=== PATIENT | female | born 1995 | race Caucasian/White ===

== ENCOUNTER → 2019-01-07 | Outpatient (CLI) | payer OTHER ==
--- NOTE | 2019-01-07 13:28 | RADIOLOGY REPORT (SQ) ---
EXAM DESCRIPTION: U/S OB 14+ TA/1 GEST W/DOPPLER COMPLETED DATE/TIME: 01/07/2019 1:00 pm REASON FOR STUDY: ANATOMY SCAN COMPARISON: None. TECHNIQUE: Static and Dynamic grayscale imaging performed of gravid uterus using transabdominal appr oach. Additional selected color Doppler and spectral images recorded. All stored on PACS. LIMITATIONS: None. FINDINGS: FETUSES SEEN:2 EGA: 18 weeks 0 days Calculated using BPD,FL,HC,AC documented on images. No discrepancy with clinica l dates. MAC: 06/10/2019 EFW: 205 +/-30 grams Twin A; 203 +/- 30 grams Twin B. PERCENTILE: Not applicable. Fetus less than or equal to 20 weeks gestation. LV P: 4.8 x 3 cm PLACENTA: Posterior grade 1 PRESENTATION: Cephalic. ANATOMY: TWIN A HEART RATE: 143 beats per minute. FOUR CHAMBER HEART: Visualized. THREE VESSEL CORD: Yes. CORD INSERTION: Visualized. KIDNEYS AND BLADDER: Visualized. Appear normal. STOMACH: Visualized. Appears normal. SPINE: Normal as visualized. BRAIN AND LATERAL VENTRICLES: Visualized. Appear normal. OTHER: No other significant finding. ANATOMY: TWIN B HEART RATE: 160 beats per minute. FOUR CHAMBER HEART: Visualized. THREE VESSEL CORD: Yes. CORD INSERTION: Visualized. KIDNEYS AND BLADDER: Visualized. Appear normal. STOMACH: Visualized. Appears normal. SPINE: Normal as visualized. BRAIN AND LATERAL VENTRICLES: Visualized. Appear normal. OTHER: No other significant finding. MATERNAL ADNEXA: Maternal ovaries not visualized. CERVICAL LENGTH: 4 cm. Closed. OTHER: No other significant finding. IMPRESSION: LIVING TWIN INTRAUTERINE . ESTIMATED GESTATIONAL AGE 18 weeks 0 days NO VISUALIZED ANOMALIES. Trimester of : Second trimester - 13 weeks 1 day to 27 weeks 6 days. TECHNICAL DOCUMENTATION: JOB ID: [id number] [employer]- All Rights Reserved Reading location - IP/workstation name: [email or web address]
--- NOTE | 2019-01-07 13:30 | RADIOLOGY REPORT (SQ) ---
EXAM DESCRIPTION: U/S [id number] + EACH ADDIT GEST COMPLETED DATE/TIME: 01/07/2019 1:00 pm REASON FOR STUDY: ANATOMY SCAN- TWINS COMPARISON: None. TECHNIQUE: Static and Dynamic grayscale imaging performed of gravid uterus using transabdominal appr oac. Additional selected color Doppler and spectral images recorded. All stored on PACS. LIMITATIONS: None. FINDINGS: See separate report of same date. IMPRESSION: LIVING TWIN INTRAUTERINE . ESTIMATED GESTATIONAL AGE 18 weeks 0 days NO VISUALIZED ANOMALIES. Trimester of : Second trimester - 13 weeks 1 day to 27 weeks 6 days. TECHNICAL DOCUMENTATION: JOB ID: [id number] [employer]- All Rights Reserved Reading location - IP/workstation name: [email or web address]
== END ==
LOC: RAD 11:45
PROVIDERS: ATTEND Obstetrics & Gynecology Obstetrics
DX: O30.042 Twin pregnancy, dichorionic/diamniotic, second trimester (principal); Z3A.18 18 weeks gestation of pregnancy
CPT/HCPCS: 76805; 76810; 93976

== ENCOUNTER 2019-12-30 18:01 | Emergency (ER) | payer OTHER ==
--- NOTE | 2019-12-30 18:10 | ER Document Report ---
ED Medical Screen (RME) - General Chief Complaint: Abdominal Pain Stated Complaint: ABDOMINAL PAIN Time Seen by Provider: 12/30/19 18:02 Primary Care Provider: SALONI CAMPOS MD [Primary Care Provider] - Follow up as needed Mode of Arrival: Wheelchair Information source: Patient Notes: 24-year-old female presented to ED for pelvic and abdominal pain with a possible ectopic . She went to a [facility] yesterday with a diagnosis of a possible ectopic and a possible intrauterine at 5 weeks 4 days. Blood urine and ultrasound have been ordered and she has been taken to ultrasound. She states she is not having any vaginal bleeding at this time. I have greeted and performed a rapid initial assessment of this patient. A comprehensive ED assessment and evaluation of the patient, analysis of test results and completion of medical decision making process will be conducted by an additional ED providers. TRAVEL OUTSIDE OF THE [place] IN LAST 30 DAYS: No Physical Exam - Vital signs Vitals: Temp Pulse Resp BP Pulse Ox 99.6 F 80 18 119/82 100 12/30/19 18:06 12/30/19 18:06 12/30/19 18:06 12/30/19 18:06 12/30/19 18:06 Course - Vital Signs Vital signs: Temp Pulse Resp BP Pulse Ox 99.6 F 80 18 119/82 100 12/30/19 18:06 12/30/19 18:06 12/30/19 18:06 12/30/19 18:06 12/30/19 18:06 Doctor's Discharge - Discharge Referrals: SALONI CAMPOS MD [Primary Care Provider] - Follow up as needed
--- NOTE | 2019-12-30 19:08 | RADIOLOGY REPORT (SQ) ---
EXAM DESCRIPTION: U/S OB TRANSVAG W/DOPPLER IMAGES COMPLETED DATE/TIME: 12/30/2019 6:46 pm REASON FOR STUDY: abdominal pain ectopic preg COMPARISON: None. TECHNIQUE: Transvaginal static and realtime grayscale images acquired of the pelvis. Additional azael cted spectral and color Doppler images recorded. All images stored on PACs. BHCG: Not available. CLINICAL DATES: LMP 11/05/2019. EGA 7 weeks 6 days. MAC 08/11/2020 LIMITATIONS: None. FINDINGS: UTERUS: There is a hypoechoic structure within the uterine canal most compatible with gest ational sac measuring 0.9 mm corresponding to estimated gestational age of 5 weeks and 5 days. . Ad ditional hypoechoic area within the uterine body measuring 1.4 x 1.3 x 1.1 cm, likely intramural fibr oid. RIGHT ADNEXA: Right ovary measures 6.6 x 5.5 x 4.8 cm. There is a cyst measuring up to 5.7 cm. Vasc ular flow identified on color Doppler. No adnexal free fluid. LEFT ADNEXA: Left ovary measures 3.2 x 1.9 x 1.6 cm. Vascular flow identified on color Doppler. No a dnexal free fluid. No adnexal masses. FREE FLUID: None. OTHER: Nabothian cyst measuring 6 mm. IMPRESSION: 1. Hypoechoic structure within the endometrial canal measuring 9 mm most compatible wit h a gestational sac and corresponding to estimated gestational age of 5 weeks and 5 days. No p ole identified at this time. Recommend short-term follow-up ultrasound to accurately assess pregnanc y status. 2. Large right ovarian cyst measuring 6.6 cm. Recommend 2 - 6 month follow-up to ensure stability/r esolution. 3. Small additional hypoechoic structure within the uterus measuring 1.4 cm, possibly small fibroid. TECHNICAL DOCUMENTATION: JOB ID: [id number] [employer]- All Rights Reserved Reading location - IP/workstation name: [email or web address]
--- NOTE | 2019-12-30 19:11 | ER Document Report ---
ED GI/ - General Chief Complaint: Abdominal Pain Stated Complaint: ABDOMINAL PAIN Time Seen by Provider: 12/30/19 18:02 Primary Care Provider: SALONI CAMPOS MD [NO LOCAL MD] - Follow up as needed JOEY MCLAUGHLIN MD [ACTIVE STAFF] - Follow up in 3-5 days Mode of Arrival: Wheelchair Notes: Patient is a G2, P1 24-year-old female who presents emergency department with a chief complaint of left pelvic pain. Patient states that her last menstrual cycle was November 04. Patient had an ultrasound done 3 days ago and they cannot rule out an ectopic at that time. [facility] went to [facility] for [facility]. They recommended a repeat ultrasound yesterday, which was transabdominal. Patient states that the could not see anything at that time. Patient has not received any care. Denies any unusual vaginal discharge. Denies any nausea or vomiting. States that the pain is only on the left side. TRAVEL OUTSIDE OF THE [place] IN LAST 30 DAYS: No Past Medical History - General Information source: Patient - Social History Smoking Status: Never Smoker Family History: Reviewed & Not Pertinent Review of Systems - Review of Systems Notes: REVIEW OF SYSTEMS: CONSTITUTIONAL : Denies recent illness. Denies recent unintentional weight loss. Denies fever, chills, or sweats. EENT: Denies eye, ear, throat, or mouth pain, discharge, or symptoms. Denies nasal or sinus congestion. CARDIOVASCULAR: Denies chest pain. RESPIRATORY: Denies shortness of breath, cough, congestion, difficulty breathing, or wheezing. GASTROINTESTINAL: Denies nausea, vomiting, and diarrhea. Denies constipation. See HPI. GENITOURINARY: Denies difficulty urinating, burning, blood in urine, urgency or frequency. FEMALE GENITOURINARY: See HPI. MUSCULOSKELETAL: Denies neck and back pain. Denies joint pain or swelling. SKIN: Denies rash, itchiness, or lesions HEMATOLOGIC : Denies easy bruising or bleeding. LYMPHATIC: Denies swollen, painful, enlarged glands. NEUROLOGICAL: Denies no numbness or tingling denies weakness. Denies headache. Denies altered mental status. Denies alteration in speech. PSYCHIATRIC: Denies stress, anxiety, alteration in sleep patterns, or depression. All other systems reviewed and negative. Physical Exam - Vital signs Vitals: Temp Pulse Resp BP Pulse Ox 99.6 F 80 18 119/82 100 11/03/20 18:06 12/30/19 18:06 12/30/19 18:06 12/30/19 18:06 12/30/19 18:06 - Notes Notes: PHYSICAL EXAMINATION: GENERAL: Appears well, healthy, well-nourished, no acute distress. HEAD: Normocephalic, atraumatic. EYES: PERRL, conjunctiva normal, all extraocular movements intact, sclera nonicteric ENT: Moist mucous membranes. NECK: Supple, no noticeable swelling, redness, rash. Normal range of motion. LUNGS: Equal breath sounds bilaterally and clear to auscultation. No wheezes rales or rhonchi. CARDIOVASCULAR: S1-S2, regular rate, regular rhythm. Radial pulses 2+, normal. ABDOMEN: Normoactive bowel sounds. Soft, mildly tender left pelvic area, no guarding, no rebound tenderness, and no masses palpated. EXTREMITIES: Normal strength and range of motion, no pitting or edema. No cyanosis. NEUROLOGICAL: Moves all extremities upon command. Strength 5/5 in all extremities. PSYCH: Normal mood, normal affect. SKIN: Warm, dry. No rash, lesions, ulcerations noted. Normal skin turgor. Course - Re-evaluation Re-evalutation: 12/30/19 20:[address] Mclaughlin and discussed the results of the ultrasound and labs. There was a gestational sac seen. This was measuring about 5 weeks and 5 days. There is no signs of pole noted. Patient will follow up with OB later this week. Patient is in agreement with this plan. Follow-up precautions were given. Verbal discharge instructions were given to the patient. They verbalized understanding. They are stable for discharge. - Vital Signs Vital signs: Temp Pulse Resp BP Pulse Ox 98.9 F 62 14 115/61 100 12/30/19 20:25 12/30/19 20:25 12/30/19 20:25 12/30/19 20:25 12/30/19 20:25 - Laboratory Result Diagrams: 12/30/19 18:51 12/30/19 18:51 Laboratory results interpreted by me: 12/30/19 18:51 Beta HCG, Quant 6542.00 H Discharge - Discharge Clinical Impression: Pelvic pain Qualifiers: Weeks of gestation: less than 8 weeks Qualified Code(s): Z3A.01 - Less than 8 weeks gestation of Condition: Stable Disposition: HOME, SELF-CARE Additional Instructions: You were seen today in the emergency department for pelvic pain during . Your ultrasound does not show a ectopic . Please follow-up with [facility] this next week in regards to this visit. Call them and make an appointment. Please do not place anything in your vagina. Do not have sex until you are cleared by [facility]. Forms: Return to Work Referrals: SALONI CAMPOS MD [NO LOCAL MD] - Follow up as needed JOEY MCLAUGHLIN MD [ACTIVE STAFF] - Follow up in 3-5 days
[2019-12-30 19:15] LABS: ABSOLUTE EOSINOPHILS # (AUTO) 0.1 10^3/uL (0.0-0.6); ABSOLUTE LYMPHOCYTES (AUTO) 2.4 10^3/uL (0.5-4.7); ABSOLUTE MONOCYTES (AUTO) 0.5 10^3/uL (0.1-1.4); ABSOLUTE NEUT (AUTO) 3.7 10^3/uL (1.7-8.2); BASOPHILS % (AUTO) 0.3 % (0-2); EOSINOPHILS % (AUTO) 1.3 % (0-6); HEMOGLOBIN 13.9 g/dL (12.0-15.5); LYMPHOCYTES % (AUTO) 35.5 % (13-45); MEAN CORPUSCULAR HGB CONC 34.6 g/dL (32.0-36.0); MEAN CORPUSCULAR VOLUME 89 fl (80-97); MONOCYTES % (AUTO) 7.8 % (3-13); PLATELET COUNT 178 10^3/uL (150-450); RED BLOOD COUNT 4.48 10^6/uL (3.72-5.28); RED CELL DISTRIBUTION WIDTH 13.7 % (11.5-14.0); SEGMENTED NEUTROPHILS % (AUTO) 55.1 % (42-78); TOTAL CELLS COUNTED % (AUTO) 100 %; WHITE BLOOD COUNT 6.7 10^3/uL (4.0-10.5)
[2019-12-30 19:32] LABS: ALBUMIN 4.2 g/dL (3.5-5.0); ALKALINE PHOSPHATASE 54 U/L (38-126); ANION GAP 7 (5-19); ASPARTATE AMINO TRANSFERASE 31 U/L (14-36); BILIRUBIN,TOTAL 0.6 mg/dL (0.2-1.3); BLOOD UREA NITROGEN 11 mg/dL (7-20); CALCIUM 9.5 mg/dL (8.4-10.2); CARBON DIOXIDE 28 mmol/L (22-30); CHLORIDE 102 mmol/L (98-107); GLUCOSE 105 mg/dL (75-110); POTASSIUM 4.5 mmol/L (3.6-5.0); TOTAL PROTEIN 7.4 g/dL (6.3-8.2)
[2019-12-30 20:28] VITALS: BP 115/61
== END 2019-12-30 20:25 | disposition home or self-care (01) ==
LOC: ER 18:01
DX: O26.91 Pregnancy related conditions, unspecified, first trimester (principal); R10.2 Pelvic and perineal pain; Z3A.01 Less than 8 weeks gestation of pregnancy
CPT/HCPCS: 36415; 76817; 80053; 84702; 85025; 93976; 99284